=== PATIENT | female | born 1945 | race Two or more races ===

== ENCOUNTER 2018-03-15 06:28 | Day surgery (SDC) | payer MEDICARE ==
[2018-03-15] MEDS ORDERED: CIPROFLOXACIN 0.3% OPHT DROP 2.5 ML BOTTLE ONE (06:46)
[2018-03-15] MEDS ORDERED: TROPICAMIDE 1% OPHT DROP 3 ML BOTTLE ONE (06:46)
[2018-03-15] MEDS ORDERED: FLURBIPROFEN 0.03% OPHT DROP 2.5 ML BOTTLE ONE (06:46)
[2018-03-15] MEDS ORDERED: CYCLOPENTOLATE 1% OPHT DROP 2 ML BOTTLE ONE (06:46)
[2018-03-15] MEDS ORDERED: PHENYLEPHRINE 2.5% OPHT DROP 2 ML BOTTLE ONE (06:47)
[2018-03-15] MEDS ORDERED: BALANCED SALT IRRIG SOLN COMB1 500 ML, EPINEPHRINE-PF 1:1000 0.5 MG IO ONE ×2 (07:00)
[2018-03-15 07:12] LABS: BASOPHILS % (AUTO) 0.5 % (0.0-2.0); EOSINOPHILS # (AUTO) 0.1 K/uL (0.0-0.7); EOSINOPHILS % (AUTO) 1.4 % (0.0-7.0); HEMATOCRIT 43.5 % (31.2-41.9); HEMOGLOBIN 14.7 g/dL (10.9-14.3); LYMPHOCYTES % (AUTO) 26.3 % (20.5-51.5); MEAN CORPUSCULAR HEMOGLOBIN 31.2 uug (24.7-32.8); MEAN CORPUSCULAR HGB CONC 34 g/dL (32.3-35.6); MEAN CORPUSCULAR VOLUME 92.4 fL (75.5-95.3); MONOCYTES # (AUTO) 0.8 K/uL (2.0-10.0); MONOCYTES % (AUTO) 9.9 % (0.0-11.0); NEUTROPHILS # (AUTO) 4.8 K/uL (1.8-8.9); NEUTROPHILS % (AUTO) 61.9 % (38.5-71.5); PLATELET COUNT (AUTO) 223 K/uL (179-408); RED BLOOD CELL COUNT(AUTO) 4.71 MIL/uL (3.63-4.92); WHITE BLOOD COUNT (AUTO) 7.8 K/uL (3.8-11.8)
[2018-03-15 07:14] LABS: *BILIRUBIN,URIN NEGATIVE (NEGATIVE); *BLOOD, URINE NEGATIVE (NEGATIVE); *CLARITY,URINE CLEAR (CLEAR); *COLOR,URINE YELLOW (YELLOW); *KETONES,URINE NEGATIVE (NEGATIVE); *PROTEIN,URINE NEGATIVE (NEGATIVE); *UROBILINOGEN,URINE 0.2 E.U./dl (NORMAL); LEUKOCYTE ESTERASE ,URINE TRACE (NEGATIVE); NITRITE, URINE NEGATIVE (NEGATIVE)
[2018-03-15 07:19] LABS: UGLUCOSE 1+ (NEGATIVE)
[2018-03-15 07:21] LABS: BACTERIA,URINE FEW /HPF (NONE SEEN); CREATININE 0.6 mg/dL (0.6-1.3); RBC,URINE 0-3 /HPF (0-3); SQUAMOUS EPITHELIAL CELL,UR FEW /HPF (NONE SEEN); WBC,URINE 0-3 /HPF (0-3)
[2018-03-15] MEDS ORDERED: LIDOCAINE-MPF 2% 5 ML VIAL ONE (07:21)
[2018-03-15] MEDS ORDERED: NEO/POLYMYX B/DEXAME OPHT OINT 3.5 GM TUBE ONE (07:21)
[2018-03-15] MEDS ORDERED: MOXIFLOXACIN HCL 3 ML OPHT DROPS ONE (07:21)
[2018-03-15] MEDS ORDERED: TETRACAINE HCL 0.5% OPHT DROP 2 ML BOTTLE ONE (07:22)
[2018-03-15] MEDS ORDERED: TIMOLOL MALEATE 0.5% OPHT DROP 5 ML BOTTLE ONE (07:22)
[2018-03-15] MEDS ORDERED: ACETYLCHOLINE CHLORIDE 1% OPHT 1 EA KIT ONE (07:22)
[2018-03-15] MEDS ORDERED: BALANCED SALT IRRIG SOLN COMB2 15 ML IRRIG.SOLN ONE (07:22)
[2018-03-15] MEDS ORDERED: HYALURONIDASE,OVINE 200 UNITS/ML VIAL ONE (07:23)
[2018-03-15] MEDS ORDERED: HYALURONATE SODIUM 8.5 MG/0.85 ML DISP.SYRIN ONE (07:23)
[2018-03-15] MEDS ORDERED: BUPIVACAINE PF 0.5% 30 ML VIAL ONE (07:23)
[2018-03-15] MEDS ORDERED: HYALURONATE SODIUM 12.8 MG/0.8 ML DISP.SYRIN ONE (07:24)
[2018-03-15] MEDS ORDERED: LORAZEPAM 1 MG TABLET PO ONE (07:30)
[2018-03-15] MEDS ORDERED: LORAZEPAM 0.5 MG TABLET ONE (07:31)
[2018-03-15] MEDS ORDERED: FENTANYL CITRATE 100 MCG/2 ML AMPUL ONE (08:25)
[2018-03-15] MEDS ORDERED: BALANCED SALT IRRIG SOLN COMB1 500 ML ONE (08:49)
== END 2018-03-15 13:05 ==
LOC: DS 06:28
PROVIDERS: ATTEND Ophthalmology
DX: E11.36 Type 2 diabetes mellitus with diabetic cataract (principal); I10 Essential (primary) hypertension; E78.5 Hyperlipidemia, unspecified; G20 Parkinson's disease; F41.9 Anxiety disorder, unspecified; R00.0 Tachycardia, unspecified
CPT/HCPCS: 36415; 66984; 71045; 80048; 81001; 82962; 85025; 85730; 93005; A4663; J0171; J3010; J3471; J3490 ×2; J7030; J7321 ×2; V2632

== ENCOUNTER 2018-07-12 06:40 | Day surgery (SDC) | payer MEDICARE, MEDICAID ==
[2018-07-12] MEDS ORDERED: IV NORMAL SALINE 1000 ML BAG IV ONE (06:41)
[2018-07-12] MEDS ORDERED: CIPROFLOXACIN 0.3% OPHT DROP 2.5 ML BOTTLE ONE (06:48)
[2018-07-12] MEDS ORDERED: KETOROLAC 0.5% OPHT DROP 3 ML BOTTLE ONE (06:48)
[2018-07-12] MEDS ORDERED: TROPICAMIDE 1% OPHT DROP 3 ML BOTTLE ONE (06:49)
[2018-07-12] MEDS ORDERED: PHENYLEPHRINE 2.5% OPHT DROP 2 ML BOTTLE ONE (06:49)
[2018-07-12] MEDS ORDERED: CYCLOPENTOLATE 1% OPHT DROP 2 ML BOTTLE ONE (06:49)
[2018-07-12] MEDS ORDERED: BALANCED SALT IRRIG SOLN COMB1 500 ML, EPINEPHRINE-PF 1:1000 0.5 MG IO ONE ×2 (07:00)
[2018-07-12] MEDS ORDERED: LORAZEPAM 0.5 MG TABLET ONE (07:04)
[2018-07-12] MEDS ORDERED: MOXIFLOXACIN HCL 3 ML OPHT DROPS ONE (07:08)
[2018-07-12] MEDS ORDERED: TIMOLOL MALEATE 0.5% OPHT DROP 5 ML BOTTLE ONE (07:08)
[2018-07-12] MEDS ORDERED: NEO/POLYMYX B/DEXAME OPHT OINT 3.5 GM TUBE ONE (07:08)
[2018-07-12] MEDS ORDERED: LIDOCAINE-MPF 2% 5 ML VIAL ONE (07:08)
[2018-07-12] MEDS ORDERED: BALANCED SALT IRRIG SOLN COMB2 15 ML IRRIG.SOLN ONE (07:09)
[2018-07-12] MEDS ORDERED: HYALURONATE SODIUM 8.5 MG/0.85 ML DISP.SYRIN ONE (07:09)
[2018-07-12] MEDS ORDERED: BUPIVACAINE PF 0.5% 30 ML VIAL ONE (07:09)
[2018-07-12] MEDS ORDERED: ACETYLCHOLINE CHLORIDE 1% OPHT 1 EA KIT ONE (07:09)
[2018-07-12] MEDS ORDERED: HYALURONIDASE,OVINE 200 UNITS/ML VIAL ONE (07:09)
[2018-07-12] MEDS ORDERED: TETRACAINE HCL 0.5% OPHT DROP 2 ML BOTTLE ONE (07:09)
[2018-07-12] MEDS ORDERED: BALANCED SALT IRRIG SOLN COMB1 0 ML ONE (07:10)
[2018-07-12] MEDS ORDERED: HYALURONATE SODIUM 12.8 MG/0.8 ML DISP.SYRIN ONE (07:10)
[2018-07-12] MEDS ORDERED: FENTANYL CITRATE 100 MCG/2 ML AMPUL ONE (07:28)
== END 2018-07-12 11:35 ==
LOC: DS 06:40
PROVIDERS: ATTEND Ophthalmology
DX: E11.36 Type 2 diabetes mellitus with diabetic cataract (principal); I10 Essential (primary) hypertension; G20 Parkinson's disease; E11.40 Type 2 diabetes mellitus with diabetic neuropathy, unspecified; Z86.73 Personal history of transient ischemic attack (TIA), and cerebral infarction without residual deficits; Z79.899 Other long term (current) drug therapy; Z79.84 Long term (current) use of oral hypoglycemic drugs; Z79.4 Long term (current) use of insulin; K21.9 Gastro-esophageal reflux disease without esophagitis
CPT/HCPCS: A4663; J0171; J3010; J3471; J3490; J7030; J7321; V2632